=== PATIENT | male | born 1995 | race American Indian/Alaskan Native ===

== ENCOUNTER 2019-12-21 22:07 | Emergency (ER) | payer SELFPAY ==
[2019-12-22] MEDS ORDERED: ACETAMINOPHEN 500 MG TAB PO ONE (01:29)
[2019-12-22] MEDS ORDERED: diphenhydrAMINE 25 MG CAP PO ONE (01:29)
[2019-12-22] MEDS ORDERED: METOCLOPRAMIDE 10 MG TAB PO ONE (01:29)
--- NOTE | 2019-12-22 02:50 | Emergency Department Report ---
ED Headache HPI - General Chief Complaint: Headache Stated Complaint: SEVERE CAREY Time Seen by Provider: 12/22/19 01:29 - History of Present Illness Initial Comments: Patient is 24-year-old -[place] male who presents for headache frontal 5/10 x2 days intermittently. Patient has history of same same location and intensity. There is no fever, chills, loss of vision. Patient has not attempted phoe-teo-mefpzsk pain medication Patient has secondary complaint of genital herpes exacerbation requesting treatment for same patient states open lesions to penile shaft x1 week Allergies/Adverse Reactions: Allergies No Known Allergies Allergy (Unverified 12/30/12 17:40) Home Medications: Ambulatory Orders Ibuprofen [Motrin] 600 mg PO Q8H PRN #20 tablet 12/30/12 methOCARBAMOL [Robaxin] 750 mg PO BID #14 tab 12/30/12 Permethrin 5% [Acticin 5% CREAM] 1 applicatio TP ONCE #60 g 01/16/13 Acetaminophen [Acetaminophen TAB] 1,000 mg PO Q6HR PRN #30 tablet 12/22/19 Metoclopramide [Reglan] 10 mg PO Q6H PRN #30 tablet 12/22/19 Valacyclovir HCl [Valtrex] 1,000 mg PO BID #14 tablet 12/22/19 diphenhydrAMINE [Benadryl CAP] 25 mg PO Q6HR PRN #30 capsule 12/22/19 ED Review of Systems ROS: Stated complaint: SEVERE CAREY Other details as noted in HPI Constitutional: denies: chills, fever Eyes: denies: eye pain, eye discharge, vision change ENT: denies: ear pain, throat pain Respiratory: denies: cough, shortness of breath, wheezing Cardiovascular: denies: chest pain, palpitations Endocrine: no symptoms reported, see HPI Gastrointestinal: denies: abdominal pain, nausea, vomiting, diarrhea, melena Genitourinary: denies: urgency, dysuria Musculoskeletal: as per HPI Skin: denies: rash, lesions Neurological: headache. denies: weakness, paresthesias Psychiatric: as per HPI Hematological/Lymphatic: denies: easy bleeding, easy bruising ED Past Medical Hx - Past Medical History Previous Medical History?: Yes Hx Asthma: Yes - Surgical History Past Surgical History?: No - Social History Smoking Status: Never Smoker Substance Use Type: None - Medications Home Medications: Home Medications Medication Instructions Recorded Confirmed Last Taken Type Ibuprofen [Motrin] 600 mg PO Q8H PRN #20 tablet 12/30/12 Unknown Rx methOCARBAMOL [Robaxin] 750 mg PO BID #14 tab 12/30/12 Unknown Rx Permethrin 5% [Acticin 5% CREAM] 1 applicatio TP ONCE #60 g 01/16/13 Unknown Rx Acetaminophen [Acetaminophen TAB] 1,000 mg PO Q6HR PRN #30 tablet 12/22/19 Unknown Rx Metoclopramide [Reglan] 10 mg PO Q6H PRN #30 tablet 12/22/19 Unknown Rx Valacyclovir HCl [Valtrex] 1,000 mg PO BID #14 tablet 12/22/19 Unknown Rx diphenhydrAMINE [Benadryl CAP] 25 mg PO Q6HR PRN #30 capsule 12/22/19 Unknown Rx ED Physical Exam - General Limitations: No Limitations General appearance: alert, in no apparent distress - Head Head exam: Present: atraumatic, normocephalic - Eye Eye exam: Present: normal appearance, PERRL, EOMI - ENT ENT exam: Present: mucous membranes moist - Neck Neck exam: Present: normal inspection, full ROM. Absent: tenderness, lymphadenopathy, thyromegaly - Respiratory Respiratory exam: Present: normal lung sounds bilaterally, chest wall tenderness. Absent: respiratory distress, wheezes, stridor, decreased breath sounds - Cardiovascular Cardiovascular Exam: Present: regular rate, normal rhythm, normal heart sounds. Absent: systolic murmur, diastolic murmur, rubs, gallop - GI/Abdominal GI/Abdominal exam: Present: soft, normal bowel sounds - Rectal Rectal exam: Present: deferred - exam: Present: other (lesion benild shaft x 3 m open pink yellow center painful to touch) - Extremities Exam Extremities exam: Present: normal inspection, full ROM. Absent: tenderness - Back Exam Back exam: Present: normal inspection - Neurological Exam Neurological exam: Present: alert, oriented X3, CN II-XII intact, normal gait - Expanded Neurological Exam Expanded Patient oriented to: Present: person, place, time Speech: Present: fluid speech Cranial nerves: EOM's Intact: Normal, Gag Reflex: Normal Cerebellar function: Finger to Nose: Normal, Heel to Kline: Normal, Romberg: Normal Motor strength exam: RUE: 5, LUE: 5, RLE: 5, LLE: 5 DTR: bicep (R): 2+, bicep (L): 2+, ankle (R): 2+, ankle (L): 2+ Best Eye Response (Radha): (4) open spontaneously Best Motor Response (Radha): (6) obeys commands Best Verbal Response (Ecru): (5) oriented Ecru Total: 15 - Psychiatric Psychiatric exam: Present: normal affect, normal mood - Skin Skin exam: Present: warm, dry, intact, normal color. Absent: rash ED Course Vital Signs 12/22/19 00:26 Temperature 98.1 F Pulse Rate 81 Respiratory 18 Rate Blood Pressure 119/77 O2 Sat by Pulse 99 Oximetry ED Medical Decision Making - Medical Decision Making Headache is improved with medications given in ED. Headache is in usual location and intensity as previous headaches of past. There are no other neruo deficits Will refill Valtrex as requested for genital HSV patient will follow up primary care doctor in 2 to 3 days patient verbalizes agreement and understanding with discharge plan. Patient DC'd home in stable condition at this time Critical care attestation.: If time is entered above; I have spent that time in minutes in the direct care of this critically ill patient, excluding procedure time. ED Disposition Clinical Impression: Headache Qualifiers: Headache type: unspecified Headache chronicity pattern: unspecified pattern Intractability: not intractable Qualified Code(s): R51.9 - Headache, unspecified Disposition: DC-01 TO HOME OR SELFCARE Is pt being admited?: No Does the pt Need Aspirin: No Condition: Stable Instructions: Acute Headache (ED) Prescriptions: Acetaminophen [Acetaminophen TAB] 1,000 mg PO Q6HR PRN #30 tablet PRN Reason: Headache diphenhydrAMINE [Benadryl CAP] 25 mg PO Q6HR PRN #30 capsule PRN Reason: Headache Metoclopramide [Reglan] 10 mg PO Q6H PRN #30 tablet PRN Reason: Headache Valacyclovir HCl [Valtrex] 1,000 mg PO BID #14 tablet Referrals: STACY COHEN MD [Primary Care Provider] - 3-5 Days Forms: Work/School Release Form(ED) Time of Disposition: 03:13
[2019-12-22 06:38] VITALS: BP 120/72
== END 2019-12-22 03:50 | disposition home or self-care (01) ==
LOC: ED 22:07
DX: R51.9 Headache, unspecified (principal); J45.909 Unspecified asthma, uncomplicated; Z79.899 Other long term (current) drug therapy
CPT/HCPCS: 99282

== ENCOUNTER 2021-08-07 13:59 | Emergency (ER) | payer SELFPAY ==
[2021-08-07 15:37] VITALS: BP 122/83
[2021-08-08] MEDS ORDERED: IBUPROFEN 600 MG TAB PO ONE (00:24)
[2021-08-08] MEDS ORDERED: ONDANSETRON 4 MG ODT TAB PO ONE (00:24)
[2021-08-08] MEDS ORDERED: FAMOTIDINE 20 MG TAB PO ONE (00:24)
[2021-08-08] MEDS ORDERED: BUTALB/ACETAMINOPHEN/CAFFEINE TAB PO ONE (00:24)
--- NOTE | 2021-08-08 03:56 | Emergency Department Report ---
ED General Adult HPI - General Chief complaint: Pain General Stated complaint: VOMTING/HEADACHE/FEEL WEAK Source: patient Mode of arrival: Ambulatory Limitations: No Limitations - History of Present Illness Initial comments: Patient is a 26-year-old -[place] male with a history of asthma who presents to the ED with complaint of acute onset persistent diffuse body aches and pains, nasal and sinus congestion, headache and subjective fever and chills for the last 2 days, worse in the last 12 hours. Patient states that he has been taking [id number] pain medications at home which appear to be helping control his body aches and pains and generalized fatigue. Patient denies dizziness, syncope, chest pain or shortness of breath, cough, sore throat, nausea and vomiting, diarrhea, dysuria, urinary frequency and urgency or change in vision. MD Complaint: Diffuse body aches and pains, headache, intermittent fever and chills -: days(s) (2) Location: head Radiation: non-radiation Severity scale (0 -10): 5 Quality: aching, sharp Consistency: constant Improves with: medication Worsens with: none Associated Symptoms: denies other symptoms, fever/chills, headaches, loss of appetite, malaise, other (Diffuse body aches and pains). denies: confusion, chest pain, cough, diaphoresis, nausea/vomiting, rash, seizure, shortness of breath, syncope, weakness Treatments Prior to Arrival: none - Related Data Previous Rx's Medication Instructions Recorded Last Taken Type methOCARBAMOL [Robaxin] 750 mg PO BID #14 tab 12/30/12 Unknown Rx Permethrin 5% [Acticin 5% CREAM] 1 applicatio TP ONCE #60 g 01/16/13 Unknown Rx Acetaminophen [Acetaminophen TAB] 1,000 mg PO Q6HR PRN #30 tablet 12/22/19 Unknown Rx Metoclopramide [Reglan] 10 mg PO Q6H PRN #30 tablet 12/22/19 Unknown Rx Valacyclovir HCl [Valtrex] 1,000 mg PO BID #14 tablet 12/22/19 Unknown Rx diphenhydrAMINE [Benadryl CAP] 25 mg PO Q6HR PRN #30 capsule 12/22/19 Unknown Rx Butalb/Acetamin/Caff 50-325-40 1 - 2 tab PO Q6HR PRN #12 tab 08/08/21 Unknown Rx [Fioricet 50-325-40] Cetirizine HCl [Zyrtec 10mg tab] 10 mg PO DAILY #30 tab 08/08/21 Unknown Rx Ibuprofen [Motrin 600 MG tab] 600 mg PO Q8H PRN #20 tablet 08/08/21 Unknown Rx Allergies Allergy/AdvReac Type Severity Reaction Status Date / Time No Known Allergies Allergy Verified 08/07/21 15:37 ED Review of Systems ROS: Stated complaint: VOMTING/HEADACHE/FEEL WEAK Other details as noted in HPI Constitutional: chills, fever, malaise Eyes: denies: eye pain, eye discharge, vision change ENT: congestion. denies: ear pain, throat pain Respiratory: denies: cough, shortness of breath, wheezing Cardiovascular: denies: chest pain, palpitations Endocrine: no symptoms reported Gastrointestinal: denies: abdominal pain, nausea, vomiting, diarrhea Genitourinary: denies: urgency, dysuria Musculoskeletal: arthralgia, myalgia. denies: back pain, joint swelling Skin: denies: rash, lesions Neurological: headache. denies: weakness, paresthesias Psychiatric: denies: anxiety, depression Hematological/Lymphatic: denies: easy bleeding, easy bruising ED Past Medical Hx - Past Medical History Previous Medical History?: Yes Hx Asthma: Yes - Social History Smoking Status: Never Smoker Substance Use Type: None - Medications Home Medications: Home Medications Medication Instructions Recorded Confirmed Last Taken Type methOCARBAMOL [Robaxin] 750 mg PO BID #14 tab 12/30/12 Unknown Rx Permethrin 5% [Acticin 5% CREAM] 1 applicatio TP ONCE #60 g 01/16/13 Unknown Rx Acetaminophen [Acetaminophen TAB] 1,000 mg PO Q6HR PRN #30 tablet 12/22/19 Unknown Rx Metoclopramide [Reglan] 10 mg PO Q6H PRN #30 tablet 12/22/19 Unknown Rx Valacyclovir HCl [Valtrex] 1,000 mg PO BID #14 tablet 12/22/19 Unknown Rx diphenhydrAMINE [Benadryl CAP] 25 mg PO Q6HR PRN #30 capsule 12/22/19 Unknown Rx Butalb/Acetamin/Caff 50-325-40 1 - 2 tab PO Q6HR PRN #12 tab 08/08/21 Unknown Rx [Fioricet 50-325-40] Cetirizine HCl [Zyrtec 10mg tab] 10 mg PO DAILY #30 tab 08/08/21 Unknown Rx Ibuprofen [Motrin 600 MG tab] 600 mg PO Q8H PRN #20 tablet 08/08/21 Unknown Rx ED Physical Exam - General Limitations: No Limitations General appearance: alert, in no apparent distress - Head Head exam: Present: atraumatic, normocephalic, normal inspection - Eye Eye exam: Present: normal appearance, PERRL, EOMI Pupils: Present: normal accommodation - ENT ENT exam: Present: normal exam, normal orophraynx, mucous membranes moist, TM's normal bilaterally, normal external ear exam - Neck Neck exam: Present: normal inspection, full ROM. Absent: tenderness - Respiratory Respiratory exam: Present: normal lung sounds bilaterally. Absent: respiratory distress, wheezes, rales, rhonchi, stridor, chest wall tenderness, accessory muscle use, decreased breath sounds, prolonged expiratory - Cardiovascular Cardiovascular Exam: Present: normal rhythm, bradycardia, normal heart sounds. Absent: systolic murmur, diastolic murmur, rubs, gallop - GI/Abdominal GI/Abdominal exam: Present: soft, normal bowel sounds. Absent: tenderness, guarding, rebound, hyperactive bowel sounds, organomegaly - Extremities Exam Extremities exam: Present: normal inspection, full ROM, normal capillary refill. Absent: tenderness - Back Exam Back exam: Present: normal inspection, full ROM. Absent: tenderness, CVA tenderness (R), CVA tenderness (L), muscle spasm, paraspinal tenderness, vertebral tenderness - Neurological Exam Neurological exam: Present: alert, oriented X3, CN II-XII intact, normal gait, reflexes normal - Psychiatric Psychiatric exam: Present: normal affect, normal mood - Skin Skin exam: Present: warm, dry, intact, normal color. Absent: rash ED Course Vital Signs 08/07/21 08/08/21 08/08/21 15:32 00:41 00:42 Temperature 98.5 F Pulse Rate 56 L Respiratory 14 18 16 Rate Blood Pressure 122/83 O2 Sat by Pulse 99 Oximetry ED Medical Decision Making - Medical Decision Making This is a 26-year-old -[place] male with a history of asthma who presents to the ED with complaint of acute onset persistent diffuse body aches and pains, nasal and sinus congestion, headache and subjective fever and chills for the last 2 days, worse in the last 12 hours. Patient states that he has been taking [id number] pain medications at home which appear to be helping control his body aches and pains and generalized fatigue. In the ED, patient is alert and oriented x3 and is not in any distress. Patient is hemodynamically stable. Patient was treated in the ED with pain medications. Rapid influenza and rapid strep test were negative. On reevaluation, patient felt better and was discharged home on medications and advised to follow-up with his primary care physician in 5 to 7 days for reevaluation. Patient was advised to return to the ED immediately if symptoms get worse. - Differential Diagnosis URI; influenza; bronchitis; pneumonia; strep pharyngitis; rhinitis; Critical care attestation.: If time is entered above; I have spent that time in minutes in the direct care of this critically ill patient, excluding procedure time. ED Disposition Clinical Impression: Acute viral syndrome, Acute upper respiratory infection, Flu-like symptoms Tension-type headache Qualifiers: Headache chronicity pattern: episodic headache Intractability: not intractable Qualified Code(s): G44.219 - Episodic tension-type headache, not intractable Disposition: 01 HOME / SELF CARE / HOMELESS Is pt being admited?: No Does the pt Need Aspirin: No Condition: Stable Instructions: Upper Respiratory Infection, Adult, [id number], Tension Headache, Adult, [id number], General Headache Without Cause, [id number] Additional Instructions: All lab test results were reviewed and are all nonactionable. Your flu and rapid strep test were negative. Therefore take medication with food, drink plenty of fluids and follow-up with your primary care physician in 7 to 10 days for reevaluation. Return to the ED immediately if symptoms get worse Prescriptions: Butalb/Acetamin/Caff 50-325-40 [Fioricet 50-325-40] 1 - 2 tab PO Q6HR PRN #12 tab PRN Reason: Headache Ibuprofen [Motrin 600 MG tab] 600 mg PO Q8H PRN #20 tablet PRN Reason: Pain Cetirizine HCl [Zyrtec 10mg tab] 10 mg PO DAILY #30 tab Referrals: EL WILSON MD [Primary Care Provider] - 3-5 Days Forms: Work/School Release Form(ED) Time of Disposition: 03:57 Print Language: BULGARIAN
== END 2021-08-08 05:19 | disposition home or self-care (01) ==
LOC: ED 13:59
DX: B34.9 Viral infection, unspecified (principal); J06.9 Acute upper respiratory infection, unspecified; G44.219 Episodic tension-type headache, not intractable; J45.909 Unspecified asthma, uncomplicated
CPT/HCPCS: 87116; 87430; 99283; J3490; 87502; Q0162